=== PATIENT | female | born 1985 | race Caucasian/White ===

== ENCOUNTER 2022-10-30 08:12 | Emergency (ER) | payer BC ==
[~2022-10-30] VITALS: Ht 160 cm; Wt 81.6 kg
[2022-10-30 08:24] VITALS: BP_SYST 133; PULSE 125; RESP 22; TEMP 99.7; O2SAT 93
[2022-10-30] MEDS ORDERED: ALBMDI INH (08:24)
[2022-10-30 09:27] LABS: INFLUENZA TYPE A negative (NEGATIVE); INFLUENZA TYPE B NEGATIVE (NEGATIVE)
[2022-10-30] MEDS ORDERED: PRED20TA PO (09:34)
[2022-10-30] MEDS ORDERED: ALBUTEROL SULFATE 0.083% 2.5 MG/3 ML VIAL.NEB INH ONE (09:45)
[2022-10-30] MEDS ORDERED: IPRATROPIUM BROM 0.5 MG/2.5 ML VIAL.NEB (ATROVENT) INH ONE (09:45)
[2022-10-30 10:18] VITALS: BP_SYST 135; PULSE 80; RESP 16; TEMP 99.1; O2SAT 99
== END 2022-10-30 10:21 | disposition home or self-care (01) ==
LOC: SED 08:12
DX: J40 Bronchitis, not specified as acute or chronic (principal); R05.9 Cough, unspecified; R06.02 Shortness of breath; Z88.6 Allergy status to analgesic agent; Z79.899 Other long term (current) drug therapy; Z20.822 Contact with and (suspected) exposure to COVID-19
CPT/HCPCS: 36415; 71045; 94640; 94760; 99284